=== PATIENT | male | born 1950 | race Two or more races ===

== ENCOUNTER 2020-11-24 15:57 | Emergency (ER) | payer MEDICARE ==
[~2020-11-24] VITALS: Ht 162.6 cm; Wt 65.0 kg
--- NOTE | 2020-11-24 16:17 | NUR ---
ASSUMED CARE OF PATIENT. PATIENT REPORTS HE IS CONSTIPATED. PT ALSO REPORTS HE WAS SEEN AT AND WAS TOLD HE HAD A ABNORMAL UA AND TO COME TO THE ER. VS STABLE. FAMILY AT BEDSIDE. NO ACUTE DISTRESS NOTED. CALL LIGHT IN PLACE. WILL CONTINUE TO MONITOR.
--- NOTE | 2020-11-24 17:08 | NUR ---
PT VISITING IN ROOM. VS STABLE. CALL LIGHT IN PLACE. WILL CONTINUE TO MONITOR.
--- NOTE | 2020-11-24 18:33 | NUR ---
LAB IN ROOM
[2020-11-24 18:45] LABS: BASOPHILS % (AUTO) 0 % (0-1); EOSINOPHILS % (AUTO) 0 % (1-7); LYMPHOCYTES % (AUTO) 16 % (22-44); MEAN CORPUSCULAR HEMOGLOBIN 30.8 pg (27.5-34.5); MEAN CORPUSCULAR HGB CONC 34.6 g/dL (33.2-36.2); MEAN PLATELET VOLUME 8.5 fL (7.4-10.4); MONOCYTES % (AUTO) 9 % (2-9); NEUTROPHILS % (AUTO) 75 % (42-75); PLATELET COUNT 203 x10^3/uL (130-400); RED BLOOD COUNT 5.65 x10^6/uL (4.38-5.82); RED CELL DISTRIBUTION WIDTH 12.6 % (9.4-14.8)
[2020-11-24 18:48] LABS: MD NO
[2020-11-24 18:54] LABS: ALANINE AMINOTRANSFERASE 63 U/L (12-78); ALBUMIN 3.2 g/dL (3.4-5.0); ANION GAP 11 mmol/L (5-15); CHLORIDE 98 mmol/L (98-107); CREATININE 1.01 mg/dL (0.7-1.3)
[2020-11-24 18:57] LABS: ALKALINE PHOSPHATASE 68 U/L (45-117); BILIRUBIN,TOTAL 1.1 mg/dL (0.2-1.0); TOTAL PROTEIN 8.6 g/dL (6.4-8.2)
--- NOTE | 2020-11-24 19:01 | NUR ---
TASK RN: PT RESTING ON GURNEY. NADN. MILIAN.
[2020-11-24] MEDS ORDERED: OMNIPAQUE 350 MG/ML, 100ML BOTTLE ONE (19:29)
--- NOTE | 2020-11-24 19:48 | NUR ---
PT VISITING WITH FAMILY AT BEDSIDE. VS STABLE. CALL LIGHT IN PLACE. WILL CONTINUE TO MONITOR.
[2020-11-24] MEDS ORDERED: PINK LADY ENEMA 490 ML BOTTLE PR ONE (20:00)
--- NOTE | 2020-11-24 21:46 | NUR ---
pt had a large bowel movement after enema.
[2020-11-24 22:21] VITALS: BP 96/70
== END 2020-11-24 22:41 | disposition home or self-care (01) ==
LOC: ED 16:45
DX: U07.1 COVID-19 (principal); K59.00 Constipation, unspecified; I25.2 Old myocardial infarction; Z86.73 Personal history of transient ischemic attack (TIA), and cerebral infarction without residual deficits; Z87.891 Personal history of nicotine dependence
CPT/HCPCS: 36415; 71045; 74177; 80053; 85025; 99285; Q9967; U0003; U0005